=== PATIENT | female | born 1975 | race Caucasian/White ===

== ENCOUNTER → 2024-01-13 06:36 | Day surgery (SDC) | payer OTHER, SELFPAY | LOC: GI 06:36 | PROVIDERS: ATTENDING PHYSICIAN Internal Medicine Gastroenterology | DX: Z12.11 Encounter for screening for malignant neoplasm of colon (principal); D12.2 Benign neoplasm of ascending colon; D12.3 Benign neoplasm of transverse colon; D12.5 Benign neoplasm of sigmoid colon; K64.8 Other hemorrhoids; D50.9 Iron deficiency anemia, unspecified; K29.70 Gastritis, unspecified, without bleeding; K20.90 Esophagitis, unspecified without bleeding; K22.89 Other specified disease of esophagus; K44.9 Diaphragmatic hernia without obstruction or gangrene; K31.89 Other diseases of stomach and duodenum; Q39.8 Other congenital malformations of esophagus; Z86.010 Personal history of colon polyps | CPT/HCPCS: 45385; 45381; 43239; 88305; 88342 ==

== ENCOUNTER → 2024-04-20 09:14 | Outpatient (REF) | payer OTHER, SELFPAY | LOC: HWWDC 09:14 | PROVIDERS: ATTENDING PHYSICIAN Internal Medicine | DX: Z12.31 Encounter for screening mammogram for malignant neoplasm of breast (principal) | CPT/HCPCS: 77063; 77067 ==

== ENCOUNTER 2024-07-05 19:24 | Emergency (ER) | payer OTHER, SELFPAY ==
[2024-07-05 19:26] VITALS: BP 158/112
[2024-07-05 19:50] VITALS: BMI 39.3
[2024-07-05] MEDS: MOTRIN 600 MG PO (19:56)
[2024-07-05] MEDS: PERCOCET 5/325 1 TABLET PO (19:56)
--- NOTE | 2024-07-05 20:13 | ED.GENMED ---
History of Present Illness
General
Chief Complaint: Musculo-Skeletal Complaint
Source: patient
Time Seen by Provider: 07/05/24 19:40
History of Present Illness
History of Present Illness:
49-year-old female presenting to the emergency department for evaluation of right lower extremity injury noting that she slipped on her kitchen floor causing her to fall and strike the anterior portion of her right lower leg on the corner of a wall
causing her to sustain a 1 cm superficial laceration but also causing large contusion/hematoma. Patient noting considerable pain especially with palpation. Denies any focal weakness, numbness, color changes, range of motion difficulties, any other
injuries sustained.
Past History
Past History
ED Past Medical History: None
ED Past Surgical History: None
Social History
Tobacco: Non-smoker
Alcohol: None
Drug: None
Personal:
Living: with family
Review of Systems
Review of Systems
All Other Systems: ROS reviewed and negative except as documented in HPI and ROS
Phy Exam
Physical Exam
Physical Exam:
GENERAL: Alert , i appears in moderate pain
EYE: conjunctiva clear
Head: Normocephalic atraumatic
NECK: Supple,
ENT: mmm.
LUNGS: no acute respiratory distress
NEUROLOGICAL: Alert and oriented
SKIN: Warm and dry, 1 cm vertically oriented laceration, superficial, anterior mid tibia. No active bleeding
MUSCULOSKELETAL: well perfused. Moderate to large hematoma anterior tibia
PSYCH: Normal and appropriate interaction.
Scores
Heart Failure Risk
Heart Failure Risk Score: Not Applicable
Heart Score for Chest Pain Patients
STEMI patient?: Not applicable
Withdrawal Assessment of Alcohol
Withdrawal Assessment Completed?: Not applicable
Course
Orders/Labs/Results
Orders:
Orders
07/05/24 19:27
CR Leg Tibia/fibula Right 2 Vw Urgent
Comment:
Reason For Exam: injury/possible open fracture
07/05/24 19:52
Ibuprofen [Motrin] 600 mg PO NOW STA
Oxycodone/Acetaminophen [Percocet 5/325] 1 tablet PO NOW STA
07/05/24 20:56
Crutches-Treatment ONCE
07/05/24 21:03
Oxycodone [Roxicodone] 5 mg PO NOW STA
Vital Signs
Initial and Last Documented VS:
Initial Vital Signs
Temp Pulse Resp BP Pulse Ox
98.9 F 138 24 158/112 98
07/05/24 19:26 07/05/24 19:26 07/05/24 19:26 07/05/24 19:26 07/05/24 19:26
Last Documented Vital Signs
Temp Pulse Resp BP Pulse Ox
98.9 F 138 24 158/112 98
07/05/24 19:26 07/05/24 19:26 07/05/24 19:26 07/05/24 19:26 07/05/24 19:26
Automotive Service Technician consulted with Physician
Automotive Service Technician consulted with physician?: Yes
Name of Physician Consulted: Jennifer
Procedures
Laceration Closure
Right Lower Anterior Leg:
Status of Wound: clean
Size of Wound in cm: 1
Description of Wound Edges: sharp
Preparation: cleaned with saline
Type of Closure: single layer closure
Skin Closure Material: 4-0 nylon
Number of sutures: 1
Additional information:
Laceration left slightly open to allow for oozing given the moderate-sized hematoma
MDM/Problems Addressed
Differential Diagnosis Includes:
Contusion/hematoma, fracture, open fracture, compartment syndrome
MDM/Problems Addressed:
49-year-old female presenting to the emergency department for evaluation after slipping in her kitchen, striking the right anterior lower leg against the corner of a wall. Patient with moderate to large hematoma. Brought immediately to x-ray to
evaluate for possible fracture. X-ray ultimately negative for fracture but does show large hematoma. Patient has easily mobile pulses, full range of motion of the extremity, no sensory deficits or current signs of compartment syndrome. We did
discuss signs and symptoms to look for for compartment syndrome. Laceration repaired as above. Pressure dressing and ice applied following laceration repair. Monitoring patient in the ER. As long as she remains plan to discharge home.
*Radiology
Radiology exam reviewed: preliminary read by ED provider (No acute fracture. Large hematoma)
*Pulse Oximetry
Patient hypoxic: no
*Critical Care Note
Total Time (30-74mins, 75-104mins- exclusive of procedures): Not Applicable
Patient Management
Escalation/DeEscalation of care consider admission/obs:
Patient remains without any symptoms to suggest compartment syndrome. Again reiterated symptoms to observe for and return precautions to the ER. Both patient and family are in agreement with this plan. Patient is otherwise stable for discharge
home. Prescription for Percocet sent to pharmacy. Advised patient trying to treat pain with NSAIDs but can use the Percocet for breakthrough pain as needed.
ED Attending Note
-
Portions of this chart may have been created with voice recognition software.� Occasional wrong word or��sound alike� substitutions may have occurred due to the inherent limitations of voice recognition software.
Discharge Plan
Departure
Patient Disposition: Home (Routine Discharge)
Date of Disposition: 07/05/24
Time of Disposition: 20:53
Patient with high blood pressure during this ER visit?: Yes
Discharge Problem:
Hematoma of right lower leg
Instructions: Hematoma
Prescriptions:
New
oxycodone-acetaminophen [Percocet] 5-325 mg tablet
1 tab PO Q6HPRN PRN (Reason: pain) Qty: 6 0RF
Referrals:
Morena Hill DO [Family Provider] -
Activity Restrictions/Additional Instructions:
Suture removal in 10 days. Keep leg elevated and ice. Pain medication as needed
Interventions
Interventions:
*Risk Screen - Suicide Last Done: 07/05/24 19:26
*General Assessment Last Done: 07/05/24 19:51
*Neglect/Abuse Screening Last Done: 07/05/24 19:26
ED- Fall Risk Assessment Last Done: 07/05/24 19:51
*ED COVID-19 Vaccine History Last Done: 07/05/24 19:51
ED-Musculoskeletal Assessment Last Done: 07/05/24 19:51
Discharge Date and Time
Print Language: WOLOF
[2024-07-05] MEDS: ROXICODONE 5 MG PO (21:07)
== END 2024-07-05 21:35 | disposition home or self-care (01) ==
LOC: EMR 19:24
PROVIDERS: EMERGENCY PHYSICIAN Emergency Medicine; FAMILY PHYSICIAN Internal Medicine
DX: S81.811A Laceration without foreign body, right lower leg, initial encounter (principal); S80.11XA Contusion of right lower leg, initial encounter; W01.198A Fall on same level from slipping, tripping and stumbling with subsequent striking against other object, initial encounter
CPT/HCPCS: 12001; 99283; 73590

== ENCOUNTER 2025-03-30 06:38 | Emergency (ER) | payer OTHER, SELFPAY ==
[2025-03-30 06:43] VITALS: BP 187/113
--- NOTE | 2025-03-30 06:58 | ED.GENMED ---
History of Present Illness
General
Chief Complaint: Skin Problem
Source: patient
Exam Limitations: none
Time Seen by Provider: 03/30/25 06:48
Nursing documentation reviewed up to this point in time: agreed with
History of Present Illness
History of Present Illness:
50 y/o F ho HTN, hld DM
shingles 10 years ago
2 days ago with L back pain radiating to the flank/abdomen region
the noticed rash last night but the rash is not painful, burnign or itching
mild nausea (on mounjaro)
denies fever, chills, no dysuria, hematuria, constipation, diarreha
pain is worse this time than previous shingles
04/21
throbbing with sharp pains that wrap around flank
not positional
no cp, sob, cough, cold symptoms
no h/o DVT/PE
no ocps
had soem itchiness to her upper back last week after returning from cruise but she thought secondary to sunburn skin
Past History
Past History
ED Past Medical History: HTN, Hypercholesterolemia and NIDDM
ED Past Surgical History: None
Social History
Tobacco: Non-smoker
Alcohol: None
Drug: None
Personal:
Living: with family
Review of Systems
Review of Systems
Allergies reviewed?: Yes
All Other Systems: Not applicable
Phy Exam
Physical Exam
Physical Exam:
GENERAL: Alert, comfortable
Neck: supple
CARDIAC: Regular rate and rhythm .
LUNGS: Clear breath sounds bilaterally, no acute respiratory distress, no wheezes/rales/rhonchi
ABDOMEN: Soft, normal bowel sounds, nondistended,, no guarding, no rebound, neg de leon's
NEUROLOGICAL: Alert and oriented, no focal neuro deficits
SKIN: Warm and dry, skin intact.
PSYCH: Normal and appropriate interaction.
Course
Orders/Labs/Results
Orders:
Orders
03/30/25 07:11
0.9% Sodium Chloride 1000 ml [Nss] 1,000 ml IV BOLUS
Ketorolac [Toradol] 30 mg IV NOW STA
Lisinopril [Zestril] 5 mg PO NOW STA
03/30/25 07:12
Electrocardiogram (*1) Urgent
Reason for Study: Hypertension, Benign
EKG- Treatment ONCE
03/30/25 07:27
Complete Blood Count/With Diff Urgent
Comprehensive Metabolic Panel Urgent
Lipase Urgent
03/30/25 07:39
Troponin I Urgent
Urinalysis Reflex To Culture Urgent
Date Specimen was Collected: 03/30/25
Time Specimen was Collected: 07:33
Urine Microscopic Reflex Cult Urgent
Urine Culture Urgent
YASMINE Source: U
Specimen Description:
Obtained by: Random
Date Specimen was Collected: 03/30/25
Time Specimen was Collected: 07:33
03/30/25 08:25
CT Abd/Pel (IV only)-DH only Urgent
Comment:
Reason For Exam: l FLANK PAIN
03/30/25 08:47
HYDROmorphone [Dilaudid] 0.5 mg IV NOW STA
03/30/25 09:08
Cefdinir [Omnicef] 300 mg PO NOW STA
Abnormal Lab Results
03/30/25 03/30/25
07:27 07:39
Hgb 11.9 L g/dL
(12.0-16.0)
Hct 36.7 L %
(37.0-47.0)
MCHC 32.4 L g/dL
(33.0-37.0)
MPV 10.7 H fL
(7.4-10.4)
Glucose 101 H mg/dl
(70-99)
Calcium 10.6 H mg/dl
(8.4-10.2)
Ur Occult Blood Reflex 4+ A
(Negative)
Leukocyte Esterase Rfl 2+ A
(Negative)
Urine RBC 11-15 A /HPF
(0-2)
Urine Bacteria (Reflex) Many A
(Negative)
Urine Albumin (Reflex) 1+ A
(Neg - Trace)
03/30/25 07:27
03/30/25 07:27
Vital Signs
Initial and Last Documented VS:
Initial Vital Signs
Temp Pulse Resp BP Pulse Ox
36.7 C 92 16 187/113 100
03/30/25 06:43 03/30/25 06:43 03/30/25 06:43 03/30/25 06:43 03/30/25 06:43
Last Documented Vital Signs
Temp Pulse Resp BP Pulse Ox
36.7 C 72 19 133/54 99
03/30/25 06:43 03/30/25 08:10 03/30/25 08:10 03/30/25 08:10 03/30/25 08:10
MDM/Problems Addressed
Differential Diagnosis Includes:
, kidney stone, kidney infection, msk breann shingles, contact dermatitis
MDM/Problems Addressed:
50 Y/O F
h/o htn, hld, dm
here with L back pain x 2 days, no injury
radiates around her L flank
constant
no urinary symptoms
jsut returend from vacation
had soem itchiness to back that resolved; last night noticed rash above where her pain is and thinks maybe this is shingles but when she had shingles,s he had more burnign pain than this
on exam pt is hypertensive but didn't take meds today
no cp
well appearing
no distress
L upper back with a few petechiae in a linear pattern that looks like excoriation; it is not raised or tender
does not look like vesicles
pt has no cva tenderness but pain is located in that region
abdomen nontender
urine positive, leuks, wbc, bacteria, blood
wbc normal
cr normal
ct shows no obviosu obstructive uropathy
bp improved
nonspecific t wave changes, really unchanged from previous
and neg trop
d/c home with cefdinri
*Pulse Oximetry
Patient hypoxic: no
Comment: 99
*Critical Care Note
Total Time (30-74mins, 75-104mins- exclusive of procedures): Not Applicable
ED Attending Note
-
Portions of this chart may have been created with voice recognition software.� Occasional wrong word or��sound alike� substitutions may have occurred due to the inherent limitations of voice recognition software.
Discharge Plan
Departure
Patient Disposition: Home (Routine Discharge)
Date of Disposition: 03/30/25
Time of Disposition: 09:26
Patient with high blood pressure during this ER visit?: No
Condition: Fair
Covid-19: Not Applicable
Discharge Problem:
UTI (urinary tract infection), Back pain
Instructions: Urinary tract infection in adults - ED discharge instructions, Flank pain - ED discharge instructions
Prescriptions:
New
cefdinir 300 mg capsule
300 mg PO BID Qty: 14 0RF
No Action
lisinopril 5 mg Tablet
5 mg PO DAILY
rosuvastatin 10 mg Tablet
10 mg PO DAILY
fluoxetine 60 mg Tablet
60 mg PO DAILY
Mounjaro 10 mg/0.5 mL Pen Injector
10 mg SC QWEEK
Referrals:
Morena Hill DO [Family Provider, Family Practice] - Follow up in 5-7 days
Activity Restrictions/Additional Instructions:
YOUR BACK PAIN MAY BE MUSCULAR OR RELATED TO A URINE INFECTION. TAKE CEFDINIR TWICE A DAY FOR 7 DAYS
FOR PAIN YOU CAN USE TYLENOL AND MOTRIN NEEDED
DRINK FLUIDS
THE RASH YOU HAVE DOESN'T LOOK LIKE SHINGLES BUT IF IT GETS WORSE, THIS COULD BE A CONSIDERATION WELL
RETURN FOR: FEVER, CHILLS, WORSE PAIN, URINARY PROBLEMS, VOMITING OR ANY CONCERNS.
Interventions
Interventions:
*Risk Screen - Suicide Last Done: 03/30/25 06:43
*Neglect/Abuse Screening Last Done: 03/30/25 06:43
*ED- Fall Risk Assessment Last Done: 03/30/25 06:43
*ED COVID-19 Vaccine History Last Done: 03/30/25 06:43
*Nursing Disposition Last Done: 03/30/25 09:48
ED-Skin Assessment Last Done: 03/30/25 07:59
Discharge Date and Time
Discharge Date/Time: 03/30/25 09:49
Print Language: LAO
[2025-03-30] MEDS: TORADOL 30 MG IV (07:28)
[2025-03-30] MEDS: NSS 1000 IV (07:29)
[2025-03-30] MEDS: ZESTRIL 5 MG PO (07:29)
[2025-03-30 07:38] VITALS: BMI 35.1
[2025-03-30 07:38] LABS: % Basophils 0.5 % (0-2); % Immature Granulocytes 0.3 % (0-0.5); % Lymphocytes 30.5 % (20.5-51.1); % Monocytes 5.8 % (1.7-9.3); % Neutrophils 61.9 % (42.2-75.2); Absolute Basophils 0.1 10^3/uL (0-0.2); Absolute Eosinophils 0.1 10^3/uL (0-0.7); Absolute Lymphocytes 3.2 10^3/uL (1.2-3.4); Absolute Monocytes 0.6 10^3/uL (0.1-0.6); Absolute Neutrophils 6.4 10^3/uL (1.4-6.5); Hematocrit 36.7 % (37.0-47.0); Hemoglobin 11.9 g/dL (12.0-16.0); Mean Corp Hgb Conc. 32.4 g/dL (33.0-37.0); Mean Corpuscular Hgb 27.7 pg (27.0-31.0); Mean Corpuscular Volume 85.5 fL (81.0-99.0); Mean Platelet Volume 10.7 fL (7.4-10.4); Nucleated Red Blood Cells % 0 %; Platelet Count 245 10^3/uL (130-400); Red Blood Cell Count 4.29 10^6/uL (4.20-5.40); White Blood Cell Count 10.4 10^3/uL (4.8-10.8)
[2025-03-30 07:57] LABS: Urine Albumin 1+ (Neg - Trace); Urine Bilirubin Negative (Negative); Urine Character Clear (Clear); Urine Color Yellow; Urine Glucose Negative (Negative); Urine Ketone Negative (Negative); Urine Leukocyte 2+ (Negative); Urine Nitrite Negative (Negative); Urine Occult Blood 4+ (Negative); Urine Urobilinogen Negative (Neg - 1+)
[2025-03-30 08:00] LABS: ALT (SGPT) 12 U/L (0-35); AST (SGOT) 16 U/L (14-36); Alkaline Phosphatase 56 U/L (38-126); Blood Urea Nitrogen 11 mg/dl (7-17); Calcium 10.6 mg/dl (8.4-10.2); Carbon Dioxide 30 mmol/L (22-30); Chloride 105 mmol/L (98-107); Estimated Creatinine Clearance 82 ml/min; Glucose 101 mg/dl (70-99); Lipase 75 U/L (23-300); Potassium 3.7 mmol/L (3.5-5.1); Sodium 141 mmol/L (135-145); Total Bilirubin 0.7 mg/dl (0.2-1.3); eGFR > 60.00
[2025-03-30 08:10] VITALS: BP 133/54
[2025-03-30 08:20] LABS: Troponin I < 0.012 ng/ml
[2025-03-30 08:24] LABS: Urine Bacteria Many (Negative)
[2025-03-30] MEDS: DILAUDID 0.5 MG IV (08:51)
[2025-03-30] MEDS: OMNICEF 300 MG PO (09:28)
== END 2025-03-30 09:49 | disposition home or self-care (01) ==
LOC: EMR 06:38
PROVIDERS: Physician Assistant; EMERGENCY PHYSICIAN Emergency Medicine; FAMILY PHYSICIAN Internal Medicine
DX: N39.0 Urinary tract infection, site not specified (principal); M54.9 Dorsalgia, unspecified; I10 Essential (primary) hypertension; E78.00 Pure hypercholesterolemia, unspecified; E11.9 Type 2 diabetes mellitus without complications; Z79.85 Long-term (current) use of injectable non-insulin antidiabetic drugs
CPT/HCPCS: 99284; 96374; 96375; 74177; 80053; 81003; 81015; 83690; 84484; 85025; 87086; 93005; Q9967

== ENCOUNTER → 2025-05-09 08:41 | Outpatient (REF) | payer OTHER, SELFPAY | LOC: RAD 08:41 | PROVIDERS: ATTENDING PHYSICIAN Internal Medicine | DX: R79.89 Other specified abnormal findings of blood chemistry (principal); E83.52 Hypercalcemia; Z78.0 Asymptomatic menopausal state | CPT/HCPCS: 77080 ==

== ENCOUNTER → 2025-05-19 08:57 | Outpatient (REF) | payer OTHER, SELFPAY | LOC: RAD 08:57 | PROVIDERS: ATTENDING PHYSICIAN Nurse Practitioner Family; FAMILY PHYSICIAN Internal Medicine | DX: E83.52 Hypercalcemia (principal); E34.9 Endocrine disorder, unspecified | CPT/HCPCS: 78071; A9500 ==

== ENCOUNTER → 2025-05-23 08:50 | Outpatient (REF) | payer OTHER, SELFPAY | LOC: HWRAD 08:50 | PROVIDERS: ATTENDING PHYSICIAN Nurse Practitioner Family; FAMILY PHYSICIAN Internal Medicine | DX: E83.52 Hypercalcemia (principal); E34.9 Endocrine disorder, unspecified | CPT/HCPCS: 76536 ==

== ENCOUNTER 2025-07-19 06:20 | Day surgery (SDC) | payer OTHER, SELFPAY ==
[2025-07-05 09:36] LABS: INR 0.95; PT 13.0 Sec (11.4-14.6)
[2025-07-05 09:37] LABS: APTT 29.9 Sec (23.4-35.0); Hematocrit 37.4 % (37.0-47.0); Hemoglobin 12.1 g/dL (12.0-16.0); Mean Corp Hgb Conc. 32.4 g/dL (33.0-37.0); Mean Corpuscular Volume 88.0 fL (81.0-99.0); Platelet Count 296 10^3/uL (130-400); Red Cell Dist. Width 13.8 % (11.5-14.5)
[2025-07-05 10:16] LABS: ALT (SGPT) 12 U/L (0-35); AST (SGOT) 16 U/L (14-36); Albumin 3.9 g/dl (3.5-5.0); Alkaline Phosphatase 61 U/L (38-126); Blood Urea Nitrogen 11 mg/dl (7-17); Calcium 10.9 mg/dl (8.4-10.2); Carbon Dioxide 32 mmol/L (22-30); Chloride 100 mmol/L (98-107); Glucose 103 mg/dl (70-99); Potassium 3.7 mmol/L (3.5-5.1); Sodium 139 mmol/L (135-145); Total Protein 7.0 g/dl (6.3-8.2); eGFR > 60.00
[2025-07-05 14:00] VITALS: BMI 30.9
[2025-07-19] VITALS (10 sets, daily range): BP systolic 113–148; BP diastolic 59–82; BMI 30.9
[2025-07-19] MEDS: TYLENOL 1000 MG PO (08:51)
[2025-07-19] MEDS: NEURONTIN 300 MG PO (08:51)
[2025-07-19 09:04] LABS: Glucose - Point of Care 89 mg/dl (70-99)
[2025-07-19] MEDS: NORMOSOL-R/PLASMALYTE-A 1000 IV (09:08)
[2025-07-19] MEDS: HEPARIN 5000 UNITS SC (10:04)
[2025-07-19 11:35] LABS: Turbo PTH 87.3 pg/ml (14.5-75.2)
[2025-07-19 12:13] LABS: Turbo PTH 14.0 pg/ml (14.5-75.2)
[2025-07-19 12:39] LABS: Glucose - Point of Care 140 mg/dl (70-99)
--- NOTE | 2025-07-19 12:51 | OR.RPT ---
Operative Report
Operative Report
Date of Operation: July 19, 2025
Preoperative Diagnosis: Parathyroid hyperparathyroidism - E210
Postoperative Diagnosis: Same
Surgeon: Az White M.D.
Operation: Minimally Invasive Right Inferior Parathyroidectomy - 34630
Anesthesia: GET
Estimated Blood Loss: 3 cc
Drains: None
Specimen: Right Inferior neck nodule, rule out parathyroid adenoma
Complications: None
Procedure:
The patient was taken to the operating room and placed in the usual supine position. After adequate general endotracheal anesthesia was established, the patient's neck was extended, prepped, and draped in the typical sterile fashion. A 4 cm
transcervical incision was made two fingerbreadths above the sternal notch. The skin incision was made with the #15 blade, and this was taken through the skin into the subcutaneous tissue. The underlying platysma muscle was divided, and subplatysmal
flaps were created superiorly to the thyroid cartilage and inferiorly to the sternal notch. Strap muscles were identified and at the midline.
Attention was turned to the patient's right side of the neck. The right thyroid lobe was mobilized medially. During this process, the right recurrent laryngeal nerve was identified and preserved throughout the surgery. The right lower neck nodule
was identified and noted to be enlarged, excised, and sent to the pathology department, which showed a hypercellular parathyroid gland. The intraoperative PTH levels normalized.
After obtaining adequate hemostasis, the strap muscles were reapproximated with #3-0 Vicryl in a running fashion. The platysma muscle was reapproximated with #3-0 Vicryl in an interrupted fashion, and the skin was approximated with #4-0 Monocryl in
a running subcuticular fashion. The Steri-Strips and sterile dressings were placed. The patient tolerated the procedure well. The final instrument, needle, and sponge counts were correct. The patient was extubated and transferred to the PACU.
[2025-07-19] MEDS: ROXICODONE 5 MG PO (13:33)
== END 2025-07-19 14:14 | disposition home or self-care (01) ==
LOC: SDS 06:20
PROVIDERS: ATTENDING PHYSICIAN Surgery; FAMILY PHYSICIAN Internal Medicine
DX: D35.1 Benign neoplasm of parathyroid gland (principal); E21.3 Hyperparathyroidism, unspecified
CPT/HCPCS: 60500; 36415; 80053; 82962; 83970; 85027; 85610; 85730; 88305; 88331; 93005